=== PATIENT | male | born 1980 | race Caucasian/White ===

== ENCOUNTER 2019-09-25 14:58 | Emergency (ER) | payer OTHER, MEDICAID, SELFPAY ==
[2019-09-25 15:03] VITALS: BP 163/99; PULSE 118; RESP 20; TEMP 36.7; O2SAT 100
--- NOTE | 2019-09-25 15:16 | DI.RAD.S_ITS ---
PROCEDURE: XR CHEST 1V INDICATIONS: cp TECHNIQUE: One view of the chest was acquired. COMPARISON: None. FINDINGS: Surgical changes and devices: None. Lungs and pleura: Lungs are difficult to actually interpret due to prominent reduced inspiratory volume and relative lordotic positioning of the patient. When these factors are taken into account no definite CHF or cardiomegaly is seen.. No pleural effusions or pneumothorax. Mediastinum: Mediastinal contours appear normal. Heart size is normal. Bones and chest wall: No suspicious bony lesions. Overlying soft tissues appear unremarkable. IMPRESSION: Reduced inspiration, lordotic positioning, no definite acute disease. Dictated by: Cruz José M.D. on 09/25/2019 at 16:08 Approved by: Cruz José M.D. on 09/25/2019 at 16:09
[2019-09-25 15:36] LABS: Add Manual Diff / Slide Review NO; Basophils Absolute Auto 100 /uL (0-100); Eosinophils Absolute Auto 100 /uL (0-450); Eosinophils Percent Auto 1.3 % (2-4); Hematocrit 46.9 % (41-53); Hemoglobin 16.6 g/dL (13.5-17.5); Lymphocytes Absolute Auto 3200 /uL (1100-4500); Lymphocytes Percent Auto 38.6 % (25-40); Mean Corpuscular HGB Conc 35.5 % (30-36); Mean Corpuscular Hemoglobin 33.1 PG (26-34); Mean Corpuscular Volume 93.3 fL (80-100); Monocytes Absolute Auto 800 /uL (0-900); Monocytes Percent Auto 9.4 % (3-14); Neutrophils Absolute Auto 4100 /uL (1500-7000); Neutrophils Percent Auto 49.7 % (50-75); Platelet Count 240 X10^3/uL (150-400); Red Blood Cell Count 5.03 X10^6/uL (4.5-5.9); Red Cell Distribution Width 13.3 % (11.6-14.8); White Blood Cell Count 8.3 X10^3/uL (4.5-11.0)
[2019-09-25 15:42] LABS: Alanine Aminotransferase 137 IU/L (<50); Albumin 4.9 g/dL (3.5-5.0); Albumin Globulin Ratio 1.4 (1.0-2.8); Alkaline Phosphatase 88 U/L (38-126); Aspartate Aminotransferase 85 IU/L (17-59); BUN Creatinine Ratio 7.4 (6-22); Bilirubin Total 0.4 mg/dL (0.2-1.3); Blood Urea Nitrogen 6 mg/dL (9-20); Carbon Dioxide 24 mmol/L (22-32); Chloride 101 mmol/L (98-107); Creatine Kinase 586 U/L (55-170); Estimated Glomerular Filt Rate > 60.0 mL/min (>60); Globulin 3.4 g/dL (1.7-4.1); Glucose 169 mg/dL (70-100); HEMOLYSIS 47 (0-50); Lipase 179 U/L (23-300); Potassium 3.9 mmol/L (3.4-5.1); Sodium 138 mmol/L (137-145); Total Protein 8.3 g/dL (6.3-8.2)
[2019-09-25 15:53] LABS: Troponin I < 0.012 ng/mL (0.01-0.034)
[2019-09-25] MEDS: ASPIRIN 81 MG CHEW TAB 324 MG PO (15:53)
[2019-09-25] MEDS: SODIUM CHLORIDE 0.9% 1,000 ML 150 ML IV (15:53)
[2019-09-25 15:57] LABS: CKMB % Relative Index 0.5 % (1.5-5.0); Creatine Kinase MB 2.67 ng/mL (<2.37)
--- NOTE | 2019-09-26 00:15 | ED_ITS ---
HPI - Chest Pain <CHEYENNE Clark - Last Filed: 09/26/19 00:45> General Chief Complaint: Chest Pain Stated Complaint: Thinks Possible Heart Attack Source: patient Mode of arrival: Ambulatory Limitations: no limitations History of Present Illness HPI narrative: This is a 39-year-old male presents to ED after experiencingracing heart and difficulty breathing and couldn't feel my hands and feel like dying at work about 1 and half to 2 hours before coming into ED. Reports he felt so bad that he was crying and freaking out. He denied having chest pain. 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 Reports primary care physician as Dr. Guerin in [place]. Patient states his father from heart attack at age 58 and he has history of hypertension and is taking lisinopril since he was 20-year-old. Reports he had mild panic attack about a year ago. During this encounter, patient states he is feeling much better and fine now and would like to leave ED. States he has 3 new worker's and a new machine and he needs to be there. Review of Systems <CHEYENNE Clark - Last Filed: 09/26/19 00:45> Review of Systems Narrative: General: Denies fever, chills, fatigue, malaise, sweats. HEENT: Denies sinus pain, ear pain, sore throat, difficulty swallowing, dizziness. Respiratory: See HPI Cardiovascular: See HPI. Gastrointestinal: Denies nausea, vomiting, abdominal pain, diarrhea, constipa tion, melena. : Denies dysuria, frequency, incontinence, hematuria, urinary retention. Musculoskeletal: Denies weakness, joint pain or bony pain. Skin: Denies rash, skin lesions, or other. Neurologic: Denies weakness, headache, numbness, change in speech, confusion, seizures, incoordination. Psychiatric: No concerning psychosocial issues. 12-point review of systems is negative except for those stated above. Patient History <CHEYENNE Clark - Last Filed: 09/26/19 00:45> Medical History (Updated 09/26/19 @ 00:22 by CHEYENNE Clark) Hypertension (Acute) Family History (Updated 09/26/19 @ 00:23 by CHEYENNE Clark) Father No problems noted. Substance Use Type: does not use Exam <Armani FrancoisCHEYENNE - Last Filed: 09/26/19 00:45> Narrative Exam Narrative: General appearance: well developed, well nourished, appears to be anxious Head: normocephalic, atraumatic, no scalp lesions, non-tender. ENT: Hearing grossly intact. Nose without bleeding, purulent discharge. Airway patent. Neck/Thyroid: neck supple, full range of motion, no visible masses or meningeal signs. No JVD, non-tender without lymphadenopathy. Skin: no suspicious rashes, lesions over visible areas. Warm and dry and appropriate color for ethnicity. Heart: no clubbing, no cyanosis, no edema. Lungs: Breathing even and unlabored. No stridor. No accessory muscles used. Able to speak in full sentences. Chest: normal shape and expansion. Abdomen: non-obese, non-distended. Neurologic: alert and oriented. 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 Psych: good eye contact. Anxious. Initial Vital Signs Initial Vital Signs: Vital Signs Temperature 98.0 F 09/25/19 15:03 Pulse Rate 118 H 09/25/19 15:03 Respiratory Rate 09/25/19 15:03 Blood Pressure 163/99 H 09/25/19 15:03 Pulse Oximetry 100 09/25/19 15:03 Psych Mental Status: mental status grossly normal Speech and Movement: speech clear Mood: anxious mood Affect: normal affect Attitude: cooperative Thought Process: circumstantial Thought Content: normal Judgment: fair <Josafat Gomez DO - Last Filed: 10/01/19 07:22> Initial Vital Signs Initial Vital Signs: Vital Signs Temperature 98.0 F 09/25/19 15:03 Pulse Rate 118 H 09/25/19 15:03 Respiratory Rate 09/25/19 15:03 Blood Pressure 163/99 H 09/25/19 15:03 Pulse Oximetry 100 09/25/19 15:03 Scores <Armani FrancoisCHEYENNE - Last Filed: 09/26/19 00:45> GCS [place] coma scale eye opening: Spontaneous [place] coma scale verbal response: Orientated Cesar coma scale motor response: Obey commands Cesar coma scale total score: 15 HEART Score Heart Score history: Slightly Suspicious Heart Score EKG: Normal Heart Score Age: < 45 years old Heart Score risk factors: 1-2 risk factors Course <CHEYENNE Clark - Last Filed: 09/26/19 00:45> Orders Ordered: Discontinued Medications Aspirin (Aspirin Chew) 324 mg PO NOW ONE Stop: 09/25/19 15:16 Last Admin: 09/25/19 15:53 Dose: 324 mg Documented by: JEOVANY Sodium Chloride (Normal Saline 0.9%) 1,000 mls @ 150 mls/hr IV CONT NATHANIEL Last Infusion: 09/25/19 16:11 Dose: 0 mls/hr Documented by: Admin: 09/25/19 15:53 Dose: 150 mls/hr Documented by: JEOVANY <Josafat Gomez DO - Last Filed: 10/01/19 07:22> Orders Ordered: Discontinued Medications Aspirin (Aspirin Chew) 324 mg PO NOW ONE Stop: 09/25/19 15:16 Last Admin: 09/25/19 15:53 Dose: 324 mg Documented by: JEOVANY Sodium Chloride (Normal Saline 0.9%) 1,000 mls @ 150 mls/hr IV CONT NATHANIEL Last Infusion: 09/25/19 16:11 Dose: 0 mls/hr Documented by: Admin: 09/25/19 15:53 Dose: 150 mls/hr Documented by: JEOVANY MDM - Chest Pain <CHEYENNE Clark - Last Filed: 09/26/19 00:45> Differential Diagnosis Differential diagnosis: Likely atypical chest pain and other (NSTMI, panic attack, PE) Medical Records Data Attestation: I reviewed the patient's medical records. Lab Data Attestation: I reviewed the patient's lab results. Result diagrams: 09/25/19 15:10 09/25/19 15:10 Labs: Lab Results 09/25/19 09/25/19 Range/Units 15:10 15:10 WBC 8.3 (4.5-11.0) X10^3/uL RBC 5.03 (4.5-5.9) X10^6/uL Hgb 16.6 (13.5-17.5) g/dL Hct 46.9 (41-53) % MCV 93.3 (80-100) fL MCH 33.1 (26-34) PG MCHC 35.5 (30-36) % RDW 13.3 (11.6-14.8) % Plt Count 240 (150-400) X10^3/uL Neut % (Auto) 49.7 L (50-75) % Lymph % (Auto) 38.6 (25-40) % [place] % (Auto) 9.4 (3-14) % Eos % (Auto) 1.3 L (2-4) % Baso % (Auto) 1.0 (0-2) % Neut # (Auto) 4100 (2911-4961) /uL Lymph # (Auto) 3200 (8039-1914) /uL [place] # (Auto) 800 (0-900) /uL Eos # (Auto) 100 (0-450) /uL Baso # (Auto) 100 (0-100) /uL Sodium 138 (137-145) mmol/L Potassium 3.9 (3.4-5.1) mmol/L Chloride 101 (98-107) mmol/L Carbon Dioxide 24 (22-32) mmol/L BUN 6 L (9-20) mg/dL Creatinine 0.81 (0.66-1.25) mg/dL Estimated GFR > 60.0 (>60) mL/min BUN/Creatinine Ratio 7.4 (6-22) Glucose 169 H (70-100) mg/dL Calcium 10.0 (8.4-10.2) mg/dL Total Bilirubin 0.4 (0.2-1.3) mg/dL AST 85 H (17-59) IU/L ALT 137 H (<50) IU/L Alkaline Phosphatase 88 (38-126) U/L Total Creatine Kinase 586 H (55-170) U/L CK-MB (CK-2) 2.67 H (<2.37) ng/mL CK-MB (CK-2) Rel Index 0.5 L (1.5-5.0) % Troponin I < 0.012 (0.01-0.034) ng/mL Total Protein 8.3 H (6.3-8.2) g/dL Albumin 4.9 (3.5-5.0) g/dL Globulin 3.4 (1.7-4.1) g/dL Albumin/Globulin Ratio 1.4 (1.0-2.8) Lipase 179 (23-300) U/L Imaging Data Chest x-ray: Radiologist's Impression: [address] [address] XRay Report Signed Patient: Luciano Shell JMR#: [id number] : 1980Acct:[id number] Age/Sex: 39 / MDate of Service: 09/25/19 Loc: ED Accession Number: [id number] Procedure: XR chest 1V Ordering Provider: Josafat Gomez D.O. PROCEDURE: XR CHEST 1V INDICATIONS: cp TECHNIQUE: One view of the chest was acquired. COMPARISON: None. FINDINGS: Surgical changes and devices: None. Lungs and pleura: Lungs are difficult to actually interpret due to prominent reduced inspiratory volume and relative lordotic positioning of the patient. When these factors are taken into account no definite CHF or cardiomegaly is seen.. No pleural effusions or pneumothorax. Mediastinum: Mediastinal contours appear normal. Heart size is normal. Bones and chest wall: No suspicious bony lesions. Overlying soft tissues appear unremarkable. IMPRESSION: Reduced inspiration, lordotic positioning, no definite acute disease. Dictated by: Cruz José M.D. on 09/25/2019 at 16:08 Approved by: Cruz José M.D. on 09/25/2019 at 16:09 ECG Data Attestation: I personally reviewed and interpreted this ECG as follows: Prior ECG tracings: not available for review Interpretation: Sinus tachycardia rate at 105. MA interval 152, QRS duration 86, QT/QTC 336/444. Normal Malcolm. No acute ST changes. MDM Narrative Medical decision making narrative: This is a 39-year-old male presents to ED with dyspnea, palpitation, carpal spasms during at work for an evaluation. However, after he was triaged and ED RN driven Chest pain order set was initiated with EKG, CXR and lab test he wished to leave ED to return to work. 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 Advised patient at least 5 times to stay in ED until rest of important blood test result comes back to make a decision since he has cardiac risk factors such as father from NH at early age and he has history of hypertension since age 20 and has been taking oral hypertensive medication. Patient repeatedly stating he is feeling much better and fine at this time. Patient is requesting to receive a phone call with test results which I declined. However, patient advised to take baby aspirin daily and to follow up with his primary care physician if he choose to leave ED for further cardiac workup. Patient has a capacity make medical decision and we discussed consequences and the risk and benefits of leaving Against Medical Advice. The patient was medicated with 324 mg of aspirin before leaving ED. Before leaving ED, the patient's heart rate has decreased to 103 bpm on the bedside registered nurse cardiac telemetry with 97% O2 sat in room air. <Josafat Gomez, DO - Last Filed: 10/01/19 07:22> Lab Data Labs: Lab Results 09/25/19 09/25/19 Range/Units 15:10 15:10 WBC 8.3 (4.5-11.0) X10^3/uL RBC 5.03 (4.5-5.9) X10^6/uL Hgb 16.6 (13.5-17.5) g/dL Hct 46.9 (41-53) % MCV 93.3 (80-100) fL MCH 33.1 (26-34) PG MCHC 35.5 (30-36) % RDW 13.3 (11.6-14.8) % Plt Count 240 (150-400) X10^3/uL Neut % (Auto) 49.7 L (50-75) % Lymph % (Auto) 38.6 (25-40) % [place] % (Auto) 9.4 (3-14) % Eos % (Auto) 1.3 L (2-4) % Baso % (Auto) 1.0 (0-2) % Neut # (Auto) 4100 (9477-8755) /uL Lymph # (Auto) 3200 (6605-6422) /uL [place] # (Auto) 800 (0-900) /uL Eos # (Auto) 100 (0-450) /uL Baso # (Auto) 100 (0-100) /uL Sodium 138 (137-145) mmol/L Potassium 3.9 (3.4-5.1) mmol/L Chloride 101 (98-107) mmol/L Carbon Dioxide 24 (22-32) mmol/L BUN 6 L (9-20) mg/dL Creatinine 0.81 (0.66-1.25) mg/dL Estimated GFR > 60.0 (>60) mL/min BUN/Creatinine Ratio 7.4 (6-22) Glucose 169 H (70-100) mg/dL Calcium 10.0 (8.4-10.2) mg/dL Total Bilirubin 0.4 (0.2-1.3) mg/dL AST 85 H (17-59) IU/L ALT 137 H (<50) IU/L Alkaline Phosphatase 88 (38-126) U/L Total Creatine Kinase 586 H (55-170) U/L CK-MB (CK-2) 2.67 H (<2.37) ng/mL CK-MB (CK-2) Rel Index 0.5 L (1.5-5.0) % Troponin I < 0.012 (0.01-0.034) ng/mL Total Protein 8.3 H (6.3-8.2) g/dL Albumin 4.9 (3.5-5.0) g/dL Globulin 3.4 (1.7-4.1) g/dL Albumin/Globulin Ratio 1.4 (1.0-2.8) Lipase 179 (23-300) U/L Discharge Plan Departure Patient Disposition: Left Against Medical Advice Clinical Impression: Panic attack Chest pain Qualifiers: Chest pain type: unspecified Qualified Code(s): R07.9 - Chest pain, unspecified Discharge Date/Time: 09/25/19 16:17 Instructions: DI for Panic Disorder, DI for Chest Pain Activity Restrictions/Additional Instructions: You have been diagnosed with [difficulty breathing possibly panic attack and chest pain]. What to do: *Take your medications as directed. *Follow up with your primary care provider in 2-3 days, call for an appointment. Let them know you were seen in the ED and that we asked you to be seen in follow up. *Return to ED if you have any new, worsening, or concerning symptoms, such as [chest pain, breathing difficulty, unable to tolerate fluids, fever, or any acute concerns]. Stand Alone Forms: Against Medical Advice <Josafat Gomez DO - Last Filed: 10/01/19 07:22> Cosign ED Attending Cosignature Attestation: Dr Gomez Co-Sign Statement: I was available for consultation during this patient's emergency department visit. This chart is signed by myself for administrative purposes only. I did not have direct contact with this patient during this visit. They were seen independently by the APC.
== END 2019-09-25 16:17 | disposition left against medical advice (07) ==
PROVIDERS: Emergency Medicine; Emergency Provider Nurse Practitioner Family
DX: F41.0 Panic disorder [episodic paroxysmal anxiety] (principal); R07.9 Chest pain, unspecified; I10 Essential (primary) hypertension
CPT/HCPCS: 36415; 71045; 80053; 82550; 82553; 83690; 84484; 85025; 93005; 99284